=== PATIENT | male | born 1940 | race Caucasian/White ===

== ENCOUNTER 2025-05-25 01:16 | Inpatient (IN) | payer MEDICARE, OTHER ==
[~2025-05-25] VITALS: Ht 167.6 cm; Wt 69.4 kg
[2025-05-25 02:15] VITALS: BP 138/46; TEMP 97.5; O2SAT 99
[2025-05-25] MEDS ORDERED: ASPI81TA31 PO (03:11)
[2025-05-25] MEDS ORDERED: MYCO500T5 PO (03:11)
[2025-05-25] MEDS ORDERED: EZET10TA15 PO (03:11)
[2025-05-25] MEDS ORDERED: TACR1CAP2 PO ×2 (03:11→11:39)
[2025-05-25] MEDS ORDERED: MAGN400T52 PO (03:11)
[2025-05-25] MEDS ORDERED: LISI10TA29 PO (03:11)
[2025-05-25] MEDS ORDERED: LEVO25TA9 PO (03:11)
[2025-05-25] MEDS ORDERED: PRED2.5T PO (03:11)
[2025-05-25] MEDS ORDERED: ROSU20TA2 PO (03:11)
[2025-05-25] MEDS ORDERED: VIT1TABL66 PO (03:18)
[2025-05-25] MEDS ORDERED: POTA-88 PO (03:18)
[2025-05-25] MEDS ORDERED: CLOP75TA15 PO (03:18)
[2025-05-25] MEDS ORDERED: ASCO-340 PO (03:18)
[2025-05-25] MEDS ORDERED: MAGNESIUM HYDROXIDE 30 ML LIQUID UDC PO PRN (04:00)
[2025-05-25] MEDS ORDERED: LORAZEPAM 0.5 MG TABLET PO PRN (04:00)
[2025-05-25] MEDS ORDERED: MAG HYDROX/AL HYDROX/SIMETH 30 ML LIQUID UDC PO PRN (04:00)
[2025-05-25 08:07] VITALS: BP_SYST 128; BP_SYST 152; BP_DIAS 78; BP_DIAS 88; TEMP 98; TEMP 98.4; O2SAT 99
[2025-05-25] MEDS: LISINOPRIL 10 MG TABLET PO SCH (12:27)
[2025-05-25] MEDS: TACROLIMUS ANHYDROUS 0.5 MG CAPSULE PO SCH ×2 (12:27→17:55)
[2025-05-25] MEDS: MYCOPHENOLATE MOFETIL 250 MG CAPSULE PO SCH (12:28)
[2025-05-25] MEDS: QUETIAPINE FUMARATE 25 MG TABLET PO SCH (13:18)
[2025-05-25 16:04] VITALS: BP 148/63; TEMP 98; O2SAT 99
[2025-05-25] MEDS ORDERED: MYCOPHENOLATE MOFETIL 500 MG PO SCH (17:00)
[2025-05-25] MEDS ORDERED: Medication Not On Formulary EA (Magnesium Oxide 400 MG) PO SCH (17:00)
[2025-05-25] MEDS ORDERED: Medication Not On Formulary EA (Ascorbate Calcium (Vitamin C TAB) 500 MG) PO SCH (17:00)
[2025-05-25] MEDS ORDERED: Medication Not On Formulary EA (Tacrolimus Anhydrous (Prograf) 2 CAP) PO SCH (17:00)
[2025-05-25] MEDS: MAGNESIUM OXIDE 400 MG TABLET PO SCH (17:53)
[2025-05-25] MEDS: ASCORBIC ACID 500 MG TABLET PO SCH (17:56)
[2025-05-25 20:00] VITALS: BP 109/51; TEMP 98.2; O2SAT 97
[2025-05-25] MEDS: ATORVASTATIN 40 MG TABLET PO SCH (20:58)
[2025-05-26] MEDS: LEVOTHYROXINE SODIUM 25 MCG TABLET PO SCH (07:12)
[2025-05-26 07:52] LABS: PLATELET COUNT (AUTO) 73 K/uL (152-348); RED BLOOD CELL COUNT(AUTO) 3.18 MIL/uL (4.06-5.63); RED CELL DISTRIBUTION WIDTH 14.9 % (12.1-16.2); WHITE BLOOD COUNT (AUTO) 6.6 K/uL (3.6-10.2)
[2025-05-26 08:11] LABS: ASPARTATE AMINOTRANSFERASE 9 U/L (15-37); CREATINE KINASE, TOTAL 28 U/L (39-308); CREATININE 0.8 mg/dL (0.6-1.3); GLUCOSE FASTING 125 mg/dL (70-115); SODIUM SERUM 139 mmol/L (136-145); TOTAL PROTEIN, SERUM 6.1 g/dL (6.4-8.2); UREA NITROGEN, BLOOD 27 mg/dL (7-18)
[2025-05-26 08:47] VITALS: BP 140/62; TEMP 97.6; O2SAT 94
[2025-05-26] MEDS: CLOPIDOGREL 75 MG TABLET PO SCH (09:41)
[2025-05-26] MEDS: ASPIRIN 81 MG TAB.CHEW PO SCH (09:41)
[2025-05-26] MEDS: POTASSIUM CHLORIDE 20 MEQ TAB.PRT.SR PO SCH (09:41)
[2025-05-26] MEDS: EZETIMIBE 10 MG TABLET PO SCH (09:42)
[2025-05-26 16:18] VITALS: BP 118/53; TEMP 97.5; O2SAT 96
[2025-05-26 20:32] VITALS: BP 132/56; TEMP 97.8; O2SAT 95
[2025-05-27 08:22] VITALS: BP 105/58; TEMP 97.5; O2SAT 96
[2025-05-27] MEDS ORDERED: TACROLIMUS ANHYDROUS PO SCH (09:00)
[2025-05-27 11:07] LABS: PTH, INTACT 69 pg/mL (15-65)
[2025-05-27 16:40] VITALS: BP 112/57; TEMP 97.5; O2SAT 96
[2025-05-27 19:58] VITALS: BP 160/72; TEMP 97.8; O2SAT 99
[2025-05-28 08:22] VITALS: BP 174/72; TEMP 97.5; O2SAT 96
[2025-05-28 16:44] VITALS: BP 155/71; TEMP 98; O2SAT 96
[2025-05-28 20:00] VITALS: BP 145/57; TEMP 97.9; O2SAT 97
[2025-05-28] MEDS: LORAZEPAM 0.5 MG TABLET PO PRN (21:05)
[2025-05-29 08:16] LABS: PLATELET COUNT (AUTO) 94 K/uL (152-348); RED BLOOD CELL COUNT(AUTO) 3.19 MIL/uL (4.06-5.63); RED CELL DISTRIBUTION WIDTH 14.1 % (12.1-16.2); WHITE BLOOD COUNT (AUTO) 4.2 K/uL (3.6-10.2)
[2025-05-29 08:32] LABS: ASPARTATE AMINOTRANSFERASE 8 U/L (15-37); CREATININE 0.9 mg/dL (0.6-1.3); SODIUM SERUM 141 mmol/L (136-145); TOTAL PROTEIN, SERUM 6.2 g/dL (6.4-8.2); UREA NITROGEN, BLOOD 28 mg/dL (7-18)
[2025-05-29 08:44] VITALS: BP 145/70; TEMP 97.5; O2SAT 96
[2025-05-29 11:25] LABS: *BILIRUBIN,URIN NEGATIVE (NEGATIVE); *BLOOD, URINE NEGATIVE (NEGATIVE); *CLARITY,URINE CLEAR (CLEAR); *COLOR,URINE YELLOW (YELLOW); *KETONES,URINE NEGATIVE (NEGATIVE); *PROTEIN,URINE NEGATIVE (NEGATIVE); *UROBILINOGEN,URINE 0.2 E.U./dl (NORMAL); LEUKOCYTE ESTERASE ,URINE NEGATIVE (NEGATIVE); NITRITE, URINE NEGATIVE (NEGATIVE)
[2025-05-29 11:36] LABS: *CREATININE,URINE 55.2 mg/dL (30-125); *SODIUM RNDM,URINE 78.0 mmol/L (40-220); *URINE TOTAL PROTEIN RANDOM 16.5 mg/dL (<150/24HR)
[2025-05-29 11:52] LABS: UGLUCOSE 2+ (NEGATIVE)
[2025-05-29] MEDS: QUETIAPINE FUMARATE 25 MG TABLET PO SCH ×2 (16:40→20:04)
[2025-05-29] MEDS: NEUTRA PHOS PACKET PO ONE (16:51)
[2025-05-29 16:54] VITALS: BP 155/74; TEMP 98; O2SAT 96
[2025-05-29] MEDS: ACETAMINOPHEN 325 MG TABLET PO PRN (19:57)
[2025-05-29 20:00] VITALS: BP 187/98; TEMP 97.7; O2SAT 97
[2025-05-30] MEDS: TEMAZEPAM 7.5 MG CAPSULE PO PRN (02:09)
[2025-05-30 07:36] LABS: PLATELET COUNT (AUTO) 119 K/uL (152-348); RED BLOOD CELL COUNT(AUTO) 3.44 MIL/uL (4.06-5.63); RED CELL DISTRIBUTION WIDTH 14.2 % (12.1-16.2); WHITE BLOOD COUNT (AUTO) 4.8 K/uL (3.6-10.2)
[2025-05-30 07:37] VITALS: BP 174/75; TEMP 97.4; O2SAT 98
[2025-05-30 16:16] VITALS: BP 163/71; TEMP 97.9; O2SAT 99
[2025-05-30] MEDS: AMLODIPINE 5 MG TABLET PO SCH (17:49)
[2025-05-30 20:00] VITALS: BP 124/58; TEMP 97.5; O2SAT 99
[2025-05-31 08:14] VITALS: BP 136/69; TEMP 98.2; O2SAT 98
[2025-05-31 15:11] VITALS: BP 106/45; TEMP 98; O2SAT 98
[2025-05-31 20:09] VITALS: BP 126/62; TEMP 98.1; O2SAT 98
[2025-06-01 07:58] VITALS: BP 141/72; TEMP 97.8; O2SAT 100
[2025-06-01 08:27] LABS: CREATININE 1.2 mg/dL (0.6-1.3); SODIUM SERUM 141 mmol/L (136-145); UREA NITROGEN, BLOOD 37 mg/dL (7-18)
[2025-06-01 15:43] VITALS: BP_SYST 129; BP_SYST 146; BP_DIAS 63; BP_DIAS 73; TEMP 98; O2SAT 94; O2SAT 98
[2025-06-01 19:59] VITALS: BP 105/52; TEMP 98.1; O2SAT 98
[2025-06-02 07:40] LABS: PLATELET COUNT (AUTO) 142 K/uL (152-348); RED BLOOD CELL COUNT(AUTO) 3.34 MIL/uL (4.06-5.63); RED CELL DISTRIBUTION WIDTH 14.2 % (12.1-16.2); WHITE BLOOD COUNT (AUTO) 5.0 K/uL (3.6-10.2)
[2025-06-02 07:56] LABS: ASPARTATE AMINOTRANSFERASE 17 U/L (15-37); CREATININE 1.0 mg/dL (0.6-1.3); SODIUM SERUM 142 mmol/L (136-145); TOTAL PROTEIN, SERUM 6.2 g/dL (6.4-8.2); UREA NITROGEN, BLOOD 35 mg/dL (7-18)
[2025-06-02 08:29] VITALS: BP 149/69; TEMP 98; O2SAT 100
[2025-06-02 11:12] LABS: EOSINOPHILS % (MANUAL) 2 % (0-8); LYMPHOCYTES % (MANUAL) 29 % (20-40); MONOCYTES % (MANUAL) 12 % (2-10); NEUTROPHILS % (MANUAL) 58 % (42-75)
[2025-06-02 11:13] LABS: PLATELET ESTIMATE DECREASED
[2025-06-02 15:41] VITALS: BP 130/70; TEMP 98; O2SAT 98
[2025-06-02 19:39] VITALS: BP 101/49; TEMP 98; O2SAT 98
[2025-06-03 08:39] VITALS: BP 133/61; TEMP 98; O2SAT 98
[2025-06-03 16:51] VITALS: BP 129/75; TEMP 98; O2SAT 98
[2025-06-04 08:22] VITALS: BP 122/76; TEMP 98; O2SAT 98
[2025-06-04 16:38] VITALS: BP 132/61; TEMP 98; O2SAT 98
[2025-06-04 20:06] VITALS: BP 120/74; TEMP 98.1; O2SAT 96
[2025-06-05 08:20] VITALS: BP 131/74; TEMP 98; O2SAT 98
[2025-06-05 16:23] VITALS: BP 128/71; TEMP 98; O2SAT 98
[2025-06-05 17:12] LABS: A/G RATIO 1.0 (0.7-1.7); BETA GLOBULIN 0.8 g/dL (0.7-1.3); GLOBULIN, TOTAL 2.7 g/dL (2.2-3.9); M-SPIKE Not Observed g/dL (Not Observed); PROTEIN, TOTAL 5.4 g/dL (6.0-8.5)
[2025-06-05 20:07] VITALS: BP 144/79; TEMP 98.2; O2SAT 100
[2025-06-06 07:48] VITALS: BP 155/73; TEMP 97.7; O2SAT 99
[2025-06-06 16:26] VITALS: BP 137/76; TEMP 97.6; O2SAT 98
[2025-06-06 19:48] VITALS: BP 148/72; TEMP 98.1; O2SAT 98
[2025-06-07 07:33] LABS: PLATELET COUNT (AUTO) 163 K/uL (152-348); RED BLOOD CELL COUNT(AUTO) 3.42 MIL/uL (4.06-5.63); RED CELL DISTRIBUTION WIDTH 13.9 % (12.1-16.2); WHITE BLOOD COUNT (AUTO) 4.8 K/uL (3.6-10.2)
[2025-06-07 07:48] LABS: ASPARTATE AMINOTRANSFERASE 12 U/L (15-37); CREATININE 0.9 mg/dL (0.6-1.3); SODIUM SERUM 140 mmol/L (136-145); TOTAL PROTEIN, SERUM 6.1 g/dL (6.4-8.2); UREA NITROGEN, BLOOD 33 mg/dL (7-18)
[2025-06-07 09:41] VITALS: BP 112/64; TEMP 98; O2SAT 98
[2025-06-07 15:59] VITALS: BP 131/65; TEMP 98; O2SAT 98
[2025-06-07 20:00] VITALS: BP 108/65; TEMP 98.1; O2SAT 97
[2025-06-08 09:03] VITALS: BP 123/58; TEMP 98.1; O2SAT 98
[2025-06-08 09:52] VITALS: BP 123/58
== END 2025-06-08 11:35 | DRG 885 ==
LOC: GPS 02:17
PROVIDERS: ADMIT Psychiatry & Neurology Psychiatry; ATTEND Nurse Practitioner Acute Care
DX: F29 Unspecified psychosis not due to a substance or known physiological condition (principal); N18.9 Chronic kidney disease, unspecified; N17.9 Acute kidney failure, unspecified; F03.911 Unspecified dementia, unspecified severity, with agitation; Z94.1 Heart transplant status; Z94.0 Kidney transplant status; F03.93 Unspecified dementia, unspecified severity, with mood disturbance; T86.19 Other complication of kidney transplant; E78.5 Hyperlipidemia, unspecified; E03.9 Hypothyroidism, unspecified; Z79.621 Long term (current) use of calcineurin inhibitor; Z79.02 Long term (current) use of antithrombotics/antiplatelets; Z79.890 Hormone replacement therapy; Z79.899 Other long term (current) drug therapy; I12.9 Hypertensive chronic kidney disease with stage 1 through stage 4 chronic kidney disease, or unspecified chronic kidney disease; Z86.73 Personal history of transient ischemic attack (TIA), and cerebral infarction without residual deficits; Z91.199 Patient's noncompliance with other medical treatment and regimen due to unspecified reason
CPT/HCPCS: 36415; 70030-TC; 70450; 76770; 80197; 83735; 83970; 84100; 84155; 84165; 84300; 85025; 87086; J7507; J7512; J7517